=== PATIENT | female | born 1965 | race Caucasian/White ===

== ENCOUNTER 2017-11-28 10:05 | Inpatient (IN) | payer OTHER ==
[~2017-11-28] VITALS: Ht 154.9 cm; Wt 121.1 kg
[~2017-11-28 10:05] MED LIST: SER25 PO
[2017-11-28 10:08] VITALS: Ht 154.9 cm; Wt 121.1 kg
[2017-11-28 10:34] LABS: BASOPHIL % 0.7 % (0-2); PLATELET COUNT 273 x10^3mcL (130-400); RED CELL DISTRIBUTION WIDTH 13.7 % (11.5-14.5)
[2017-11-28 10:57] LABS: CALCIUM 9.2 mg/dL (8.5-10.1); CARBON DIOXIDE 26.1 mmol/L (21-32); CHLORIDE SERUM 100 mmol/L (98-107); CREATININE SERUM 0.8 mg/dL (0.6-1.0); GFR1 > 60 mL/min; GLUCOSE SERUM 181 mg/dL (74-106); POTASSIUM SERUM 4.1 mmol/L (3.5-5.1); SODIUM SERUM 137 mmol/L (136-145)
[2017-11-28 11:01] LABS: ALBUMIN 3.9 g/dL (3.4-5.0); ALKALINE PHOSPHATASE 92 U/L (46-116); ALT/SGPT 77 U/L (14-59); AST/SGOT 57 U/L (15-37); BILIRUBIN TOTAL 0.47 mg/dL (0.20-1.00); TOTAL PROTEIN, SERUM 7.6 g/dL (6.4-8.2)
[2017-11-28] MEDS ORDERED: BUPROPION HCL150 M3 PO (12:47)
[2017-11-28] MEDS ORDERED: SEROQUEL100 MG PO (12:48)
[2017-11-28 12:57] LABS: T3 TOTAL 1.43 ng/mL
[2017-11-28 13:15] LABS: FREE T4 0.95 ng/dL (0.76-1.46); FREE THYROXINE INDEX 2.9 ug/dL (1.4-4.5); T4(THYROXINE) 9.1 ug/dL (4.7-13.3)
[2017-11-28 13:22] VITALS: BP 131/85
[2017-11-28 13:37] LABS: MAGNESIUM 2.2 mg/dL (1.8-2.4); PHOSPHOROUS 3.6 mg/dL (2.5-4.9)
[2017-11-28 13:39] LABS: CHOLESTEROL/HDL RATIO 3.5
[2017-11-28 17:00] VITALS: BP 132/87
[2017-11-28 21:18] VITALS: BP 140/87
[2017-11-29 05:52] VITALS: BP 130/71
[2017-11-29 06:32] LABS: BASOPHIL % 0.5 % (0-2); PLATELET COUNT 214 x10^3mcL (130-400); RED CELL DISTRIBUTION WIDTH 13.6 % (11.5-14.5)
[2017-11-29 07:05] LABS: CALCIUM 8.6 mg/dL (8.5-10.1); CARBON DIOXIDE 25.8 mmol/L (21-32); CHLORIDE SERUM 104 mmol/L (98-107); CREATININE SERUM 0.9 mg/dL (0.6-1.0); GFR1 > 60 mL/min; GLUCOSE SERUM 157 mg/dL (74-106); MAGNESIUM 2.3 mg/dL (1.8-2.4); PHOSPHOROUS 4.3 mg/dL (2.5-4.9); POTASSIUM SERUM 3.8 mmol/L (3.5-5.1); SODIUM SERUM 139 mmol/L (136-145)
[2017-11-29 09:50] VITALS: BP 138/86
[2017-11-29] MEDS ORDERED: ECO81 PO (15:25)
[2017-11-29] MEDS ORDERED: LIPI10 PO (15:25)
[2017-11-29 15:41] VITALS: BP 138/86
== END 2017-11-29 17:15 | disposition home or self-care (01) | DRG 203 ==
LOC: ED 10:05 → DU 11:14
PROVIDERS: Emergency Medicine; Family Medicine
DX: M94.0 Chondrocostal junction syndrome [Tietze] (principal); Z68.43 Body mass index [BMI] 50.0-59.9, adult; F41.9 Anxiety disorder, unspecified; E66.01 Morbid (severe) obesity due to excess calories; F20.9 Schizophrenia, unspecified; F32.9 Major depressive disorder, single episode, unspecified; Z87.891 Personal history of nicotine dependence
CPT/HCPCS: 82962; 83880; 84439; 85378; J1644; J1885; J2060; J7030; Q0092

== ENCOUNTER 2020-10-07 06:52 | Emergency (ER) | payer OTHER ==
[~2020-10-07] VITALS: Ht 154.9 cm; Wt 90.9 kg
[~2020-10-07 06:52] MED LIST changes: +BUPROPION HCL150 M3 PO; +ECO81 PO; +LIPI10 PO; +SEROQUEL100 MG PO
[2020-10-07 07:04] VITALS: Ht 154.9 cm; Wt 90.9 kg
[2020-10-07 07:51] LABS: BASOPHIL % 0.6 % (0.2-1.3); PLATELET COUNT 294 x10^3mcL (179-408); RED CELL DISTRIBUTION WIDTH 13.6 % (12.3-17.7)
[2020-10-07 08:43] LABS: CALCIUM 9.3 mg/dL (8.5-10.1); CARBON DIOXIDE 24.4 mmol/L (21-32); CHLORIDE SERUM 101 mmol/L (98-107); GFR1 > 60 mL/min; GLUCOSE SERUM 125 mg/dL (74-106); POTASSIUM SERUM 4.1 mmol/L (3.5-5.1); SODIUM SERUM 135 mmol/L (136-145)
[2020-10-07 08:46] LABS: AMPHETAMINE QUAL UR NONE DETECTED (See below)
[2020-10-07 08:47] LABS: ALKALINE PHOSPHATASE 92 U/L (46-116); ALT/SGPT 32 U/L (14-59); AST/SGOT 22 U/L (15-37); TOTAL PROTEIN, SERUM 7.4 g/dL (6.4-8.2)
[2020-10-07 09:30] VITALS: BP 107/68
== END 2020-10-07 09:30 | disposition home or self-care (01) ==
LOC: ED 06:52
PROVIDERS: Specialist
DX: R25.9 Unspecified abnormal involuntary movements (principal); Z13.9 Encounter for screening, unspecified
CPT/HCPCS: 82962; G0480